=== PATIENT | female | born 1955 | race Caucasian/White ===

== ENCOUNTER 2017-02-11 18:55 | Observation (INO) | payer OTHER ==
[2017-02-11 20:00] LABS: Troponin I Less than 0.010 ng/mL (< 0.028)
[2017-02-11] MEDS ORDERED: diphenhydrAMINE 50 MG/ML VIAL ONE (20:43)
[2017-02-11] MEDS ORDERED: Metoclopramide HCl 10 MG/2 ML VIAL ONE (20:43)
[2017-02-11] MEDS ORDERED: Acetaminophen 500 MG TAB ONE (20:43)
--- NOTE | 2017-02-12 01:43 | PDOC.EVN ---
Event Note - Event Note Event Note: [id number] H&P Dictated 1. Chest pain 2. hTN PLAN: SEE ORDERS
[2017-02-12] MEDS ORDERED: Ondansetron HCl/PF 4 MG/2 ML Vial IVP PRN (02:07)
[2017-02-12] MEDS ORDERED: Acetaminophen 325 MG TAB PO PRN (02:07)
[2017-02-12] MEDS ORDERED: Ondansetron ODT 4 MG TAB SL PRN (02:07)
[2017-02-12] MEDS ORDERED: hydrALAZINE 20 MG/ML VIAL SLOW IVP PRN (02:40)
[2017-02-12 04:33] LABS: Troponin I Less than 0.010 ng/mL (< 0.028)
[2017-02-12] MEDS: Nitroglycerin 2% Ointment 1 INCH/1 GM Packet TOP SCH ×2 (05:19→14:13)
[2017-02-12 07:52] LABS: Troponin I Less than 0.010 ng/mL (< 0.028)
[2017-02-12] MEDS ORDERED: Aspirin 325 MG TAB PO SCH (09:00)
[2017-02-12] MEDS ORDERED: FLU VACC QS2017-18 36 mo. & older 0.5 ML SYRINGE IM ONE (09:00)
--- NOTE | 2017-02-12 11:51 | HP ---
DATE OF ADMISSION: 02/12/2017 CHIEF COMPLAINT: Chest pain. HISTORY OF PRESENT ILLNESS: The patient is a 61-year-old female with past medical history of hypertension, who came to the ER with complaint of chest pain. Chest pain started all of sudden, substernal, shooting kind of pain, intermittent, and radiating to the left arm, pain is intermittent. Denies any sweating, denies any nausea, denies any vomiting, denies any dyspnea, denies any lightheadedness. Chest pain persisted, so she came to the ER. Denies any headache, denies any cough, denies sputum production, denies any fever, denies any chills. PAST MEDICAL HISTORY: As per HPI. PAST SURGICAL HISTORY: . ALLERGIES: Reviewed. SOCIAL HISTORY: Denies smoking, denies alcohol, denies any drugs. MEDICATIONS: Reviewed. REVIEW OF SYSTEMS: Constitutional: Denies any fever, denies any chills. Eyes : Denies any vision problems. Ears: Denies any hearing loss. Neck: Denies any neck pain. Cardiovascular system: Positive for chest pain. Respiratory system: Denies any cough, denies any sputum production. Gastrointestinal system: Denies nausea or vomiting. Integumentary system: Denies any rash. Genitourinary: Denies dysuria. Musculoskeletal: Denies any joint deformities. All other review of systems are reviewed and are negative. PHYSICAL EXAMINATION: CONSTITUTIONAL/VITAL SIGNS: At the time of H&P performed, blood pressure is 104 /65, pulse ox 95%, heart rate 68. GENERAL: The patient appears comfortable. HEENT: Pupils are equal, round, and reactive. Anterior nares patent. Ear and nose normal. Teeth intact. Tongue is moist. NECK: Supple, no JVD. CARDIOVASCULAR SYSTEM: S1 and S2 present. Regular rate and rhythm. No murmurs , no rubs, no gallops. RESPIRATORY SYSTEM: No wheezing, no rhonchi. Breath sounds bilaterally. GASTROINTESTINAL: Abdomen is soft, nontender. No guarding, no organomegaly, no masses felt. MUSCULOSKELETAL: No edema. CRANIAL NERVE SYSTEM: Cranial nerves intact. Follows commands. Strength intact, sensory intact. PSYCHIATRIC: Mood appropriate at this time. LABORATORY DATA: At the time of H&P performed, troponin less than 0.010. White count 7.6, hemoglobin 14, platelet count is 201. Sodium 141, potassium 3.8, chloride 108, CO2 of 24, BUN of 15, creatinine 0.89. ASSESSMENT AND PLAN: The patient is a 61-year-old female: 1. Chest pain, need to rule out any cardiac etiology. Plan to check cardiac enzymes. Plan to monitor the patient closely. 2. History of hypertension. Monitor blood pressure, continue home blood pressure meds. Case was discussed. 3. DVT prophylaxis: SCD & PPI Case was discussed in detail with the patient. Patient is FULL CODE. MTDD
[2017-02-12 16:03] VITALS: BP 119/69; TEMP 98.2
--- NOTE | 2017-02-12 17:48 | NM ---
EXERCISE STRESS MYOCARDIAL PERFUSION STUDY 02/12/17 HISTORY: Chest pain. Family history of coronary artery disease. RADIOPHARMACEUTICAL: 31.7 millicuries technetium 99 m Sestamibi, IV at stress and 9 millicuries of technetium 99m Sestamib i, IV at rest. This exam was performed as an exercise stress myocardial perfusion study following the routine Aditya protocol. Resting heart rate is 65 beats per minute with maximal heart rate of 144 beats per minute w hich is 89% of the maximal predicted effective heart rate. FINDINGS: There is mild diminished a very small area of mildly diminished uptake of radiotracer seen in the dis magaly right anteroseptal wall and at the apex which is likely related to breast attenuation given promi nent breast attenuation on the rotating planar images. There is no significant reversible defect seen to suggest ischemia. Gated images show normal ventricular wall motion and wall thickening. The calcu lated left ventricular ejection fraction is 75%. IMPRESSION: 1. No significant reversible defect seen to suggest ischemia. 2. Normal LV function with normal LVEF. 3. Findings were reviewed with Dr. Newton who is in agreement with the above findings as marcelo flores. POS: ROYA
--- NOTE | 2017-02-13 06:35 | DIS ---
PRIMARY CARE PHYSICIAN: Dr. Bassett. ADMISSION DIAGNOSES: 1. Chest pain. 2. Hypertension. 3. Dyspepsia. DISCHARGE DIAGNOSES: 1. Chest pain, noncardiac, resolved. 2. Hypertension. 3. Dyspepsia. CONSULTATIONS: None. PROCEDURE: Nuclear medicine stress test showing no evidence for coronary artery disease and a normal ejection fraction. SUMMARY OF HOSPITAL COURSE: This is a 61-year-old white female who has for 3 days of intermittent sh ooting pain going from her left upper outer chest really almost into her shoulder radiating down her left arm. This pain was intermittent, it was associated with some pins and needles in her feet and s he also had some dyspepsia on and off for the last 3 days. The patient was seen in the emergency terence m, she had a normal EKG, negative cardiac markers. She was put in observation, had negative cardiac markers x3 and she had a nuclear medicine stress test, it was negative for evidence of coronary arter y disease. She is doing well on the day of discharge. A repeat exam was normal. She is being disch arged home. DISCHARGE MANAGEMENT: Discharged home. FOLLOWUP: Follow up with primary care physician in the next couple of weeks. ACTIVITY: As tolerated. DIET: Healthy heart, low sodium diet. MEDICATIONS: Resume all home medications plus I am adding omeprazole 20 mg daily for the next 2 week s.
--- NOTE | 2017-03-08 10:03 | STRESS ---
Acquisition Time: 2017-02-12 12:20:42 Total Exercise Time: 00:09:00 Test Indications: CHEST PAIN Medications: Protocol: STEFANIE Max HR: 144 BPM 89% of Pred: 161 BPM Max BP: 156/086 mmHG Max Work Load: 10.4 METS THE PATIENT EXERCISED FOR 9:OO ON A STEFANIE PROTOCOL. PATIENT HEART RATE AT 141 BPM. TARGET HEART RATE OF 137 BPM. SHE DID NOT DEVELOP CHEST PAIN. THERE WAS NO SIGNIFICANT ST DEPRESSION. NEGATIVE EXERCISE TREADMILL TEST. AWAIT NUCLEAR IMAGES FOR DEFINITIVE DIAGNOSIS Confirmed by MARICEL GROSSMAN ([id number]), video effects editor PHILIP COLLINS ([id number]) on 03/08/2017 10:02:21 AM Referred By: Anastacio CURRAN Confirmed By:MARICEL GROSSMAN
--- NOTE | 2017-03-19 12:39 | EKG ---
Test Reason : C/P R/O Blood Pressure : / mmHG Vent. Rate : 063 BPM Atrial Rate : 063 BPM P-R Int : 154 ms QRS Dur : 076 ms QT Int : 446 ms P-R-T Axes : 039 -02 018 degrees QTc Int : 456 ms Normal sinus rhythm Normal ECG Confirmed by ALISSA VASQUES ([id number]), film editor supervisor ROMAN CARNEY ([id number]) on 03/19/2017 12:38:51 PM Referred By: TOMMY VASQUES Confirmed By:ALISSA VASQUES
== END 2017-02-12 16:26 | disposition home or self-care (01) ==
LOC: ERS 18:55 → 2SW 02-12 00:32
PROVIDERS: ADMIT Internal Medicine; ATTEND Internal Medicine
DX: R07.89 Other chest pain (principal); I10 Essential (primary) hypertension; R10.13 Epigastric pain; Z79.899 Other long term (current) drug therapy; Z98.890 Other specified postprocedural states
CPT/HCPCS: 36415; 78452; 80061; 84484; 90471; 90682; 93005; 93017; 96361; 96374; 96375; A9500; G0008; G0378; J1200; J2765; Q2036